=== PATIENT | male | born 1955 | race Caucasian/White ===

== ENCOUNTER 2016-08-11 15:55 | Emergency (ER) | payer SELFPAY ==
[~2016-08-11] VITALS: Ht 177.8 cm; Wt 68.0 kg
[~2016-08-11 15:55] MED LIST: AMLO10TA4 PO; ASPI325T4 PO; ATOR20TA9 PO; CLON0.1T12 PO; DOXY100T PO; FAMO20TA37 PO; FAMO20TA7 PO; Folic Acid PO; LORA-446 PO; MULT1TAB60 PO; ONDA4TAB10 PO; PRED20TA PO; THIA100T6 PO
[2016-08-11] MEDS ORDERED: THIAMINE 100MG TABLET ONE (16:28)
[2016-08-11] MEDS ORDERED: THIAMINE 100MG TABLET PO ONE (16:30)
[2016-08-11] MEDS ORDERED: PLEASE ENTER WEIGHT MC SCH (16:30)
[2016-08-11 19:21] VITALS: BP 121/75
== END 2016-08-11 19:47 | disposition home or self-care (01) ==
LOC: ED 17:25
DX: F10.120 Alcohol abuse with intoxication, uncomplicated (principal); F17.210 Nicotine dependence, cigarettes, uncomplicated; J44.9 Chronic obstructive pulmonary disease, unspecified; I10 Essential (primary) hypertension; I25.10 Atherosclerotic heart disease of native coronary artery without angina pectoris; I25.2 Old myocardial infarction
CPT/HCPCS: 99283

== ENCOUNTER 2016-08-12 07:50 | Emergency (ER) | payer SELFPAY ==
[~2016-08-12] VITALS: Ht 172.7 cm; Wt 62.0 kg
[2016-08-12 13:02] VITALS: BP 117/68
== END 2016-08-12 13:04 | disposition home or self-care (01) ==
LOC: ED 08:31
DX: F10.229 Alcohol dependence with intoxication, unspecified (principal)
CPT/HCPCS: 99283

== ENCOUNTER 2016-08-25 23:01 | Emergency (ER) | payer SELFPAY ==
[~2016-08-25] VITALS: Ht 172.7 cm; Wt 64.0 kg
[2016-08-26 05:30] VITALS: BP 118/71
== END 2016-08-26 06:02 | disposition left against medical advice (07) ==
LOC: ED 23:59
DX: F10.220 Alcohol dependence with intoxication, uncomplicated (principal); I10 Essential (primary) hypertension; J44.9 Chronic obstructive pulmonary disease, unspecified; I25.10 Atherosclerotic heart disease of native coronary artery without angina pectoris
CPT/HCPCS: 99283

== ENCOUNTER 2016-09-19 13:16 | Emergency (ER) | payer MEDICAID ==
[~2016-09-19] VITALS: Ht 177.8 cm; Wt 70.0 kg
[2016-09-19 14:07] LABS: DAU SCREEN DISCLAIMER
[2016-09-19 14:08] LABS: ASPARTATE AMINO TRANSFERASE 20 U/L (15-37); BLOOD UREA NITROGEN 11 mg/dL (7-18)
[2016-09-19 14:12] LABS: ACETAMINOPHEN < 2 mcg/mL (10-30)
[2016-09-19 16:01] VITALS: BP 129/77
== END 2016-09-19 17:54 | disposition left against medical advice (07) ==
LOC: ED 15:46
DX: F10.221 Alcohol dependence with intoxication delirium (principal); I25.10 Atherosclerotic heart disease of native coronary artery without angina pectoris; I10 Essential (primary) hypertension; I25.2 Old myocardial infarction; J44.9 Chronic obstructive pulmonary disease, unspecified
CPT/HCPCS: 36415; 70450; 71010; 80053; 80307; 80329; 81001; 85025; 93005; 99285; G0480

== ENCOUNTER 2016-09-21 13:43 | Inpatient (IN) | payer MEDICAID ==
[~2016-09-21] VITALS: Ht 172.7 cm; Wt 60.2 kg
[2016-09-21 14:57] LABS: ASPARTATE AMINO TRANSFERASE 30 U/L (15-37); BLOOD UREA NITROGEN 27 mg/dL (7-18)
[2016-09-21] MEDS ORDERED: SODIUM CHLORIDE FLUSH 10ML SYR IVF ONE (15:30)
[2016-09-21] MEDS ORDERED: SODIUM CHLORIDE 0.9% 1,000ML IVBOLUS ONE (15:30)
[2016-09-21] MEDS ORDERED: MAGNESIUM SULFATE 1 GM, THIAMINE 100 MG, FOLIC ACID 1 MG, MVI ADULT 10 ML in SODIUM CHL... IV ONE (17:00)
[2016-09-21] MEDS ORDERED: ALUMINUM/MAG/SIMETHICONE 30 ML UDC PO PRN (18:00)
[2016-09-21] MEDS ORDERED: DIPHENHYDRAMINE 50 MG CAPSULE PO PRN (18:00)
[2016-09-21] MEDS ORDERED: ACETAMINOPHEN 325 MG TABLET PO PRN (18:00)
[2016-09-21] MEDS ORDERED: LORazepam 1MG TABLET PO PRN ×3 (18:00)
[2016-09-21] MEDS ORDERED: DOCUSATE 100 MG CAPSULE PO PRN (18:00)
[2016-09-21] MEDS ORDERED: BISACODYL 10 MG SUPP PR PRN (18:00)
[2016-09-21] MEDS ORDERED: ONDANSETRON 2MG/ML, 2ML IV PRN (18:00)
[2016-09-21 18:10] VITALS: BP 123/63
[2016-09-21] MEDS ORDERED: LORazepam 1MG TABLET ONE (18:42)
[2016-09-21] MEDS: LORazepam 0.5MG TABLET PO PRN (18:46)
[2016-09-21 19:11] LABS: IS PT STATUS REG ER OR PRE ER? NO
[2016-09-21 19:33] VITALS: BP 129/69
[2016-09-21 20:00] VITALS: BP 123/63
[2016-09-21] MEDS: BACLOFEN 10 MG TABLET PO SCH (20:21)
[2016-09-21] MEDS: ENOXAPARIN 40 MG/0.4 ML SQ SCH (20:21)
[2016-09-22 02:02] VITALS: BP 125/67
[2016-09-22] MEDS: LORazepam 1MG TABLET PO PRN (02:07)
[2016-09-22] MEDS: SODIUM CHLORIDE 0.9% 1,000 ML IV SCH ×2 (04:00→12:11)
[2016-09-22] MEDS: BACLOFEN 10 MG TABLET PO SCH ×2 (08:09→20:18)
[2016-09-22] MEDS: MULTIVITAMINS/MINERALS TABLET PO SCH (08:09)
[2016-09-22] MEDS: LORazepam 0.5MG TABLET PO PRN ×2 (08:09→17:29)
[2016-09-22] MEDS: NICOTINE 14MG/24 HR PATCH.TD24 TD SCH (08:10)
[2016-09-22 09:45] VITALS: BP 147/78
[2016-09-22 13:51] VITALS: BP 154/77
[2016-09-22] MEDS: POTASSIUM CHLORIDE 10 MEQ, MVI ADULT 10 ML, FOLIC ACID 1 MG, MAGNESIUM SULFATE 1 GM in ... IV SCH (17:29)
[2016-09-22 18:44] VITALS: BP 179/87
[2016-09-22] MEDS ORDERED: SODIUM CHLORIDE 0.9% 1,000 ML IV SCH (19:00)
[2016-09-22] MEDS: ENOXAPARIN 40 MG/0.4 ML SQ SCH (20:18)
[2016-09-23 01:27] VITALS: BP 159/84
[2016-09-23 05:35] LABS: BLOOD UREA NITROGEN 7 mg/dL (7-18)
[2016-09-23 07:54] VITALS: BP 152/82
[2016-09-23] MEDS ORDERED: POTASSIUM CHLORIDE 20 MEQ TAB.ER.PRT PO ONE (08:30)
[2016-09-23] MEDS ORDERED: SODIUM PHOSPHATE 15 MMOL in SODIUM CHLORIDE 0.9% 500 ML IV ONE (10:00)
[2016-09-23] MEDS: MULTIVITAMINS/MINERALS TABLET PO SCH (10:23)
[2016-09-23] MEDS: LORazepam 0.5MG TABLET PO PRN ×2 (10:23→12:29)
[2016-09-23] MEDS: TAMSULOSIN 0.4 MG CAP.ER.24H PO SCH (10:23)
[2016-09-23] MEDS: BACLOFEN 10 MG TABLET PO SCH ×2 (10:23→20:34)
[2016-09-23] MEDS: NICOTINE 14MG/24 HR PATCH.TD24 TD SCH (10:24)
[2016-09-23 13:22] VITALS: BP 142/74
[2016-09-23] MEDS: LORazepam 1MG TABLET PO PRN (18:06)
[2016-09-23] MEDS: POTASSIUM CHLORIDE 10 MEQ, MVI ADULT 10 ML, FOLIC ACID 1 MG, MAGNESIUM SULFATE 1 GM in ... IV SCH (18:06)
[2016-09-23] MEDS ORDERED: POTASSIUM CHLORIDE 10 MEQ in SODIUM CHLORIDE 0.9% 1,000 ML IV SCH (19:00)
[2016-09-23] MEDS: ENOXAPARIN 40 MG/0.4 ML SQ SCH (20:34)
[2016-09-23 20:42] VITALS: BP 136/91
[2016-09-24 02:00] VITALS: BP 147/100
[2016-09-24] MEDS: POTASSIUM CHLORIDE 10 MEQ in SODIUM CHLORIDE 0.9% 1,000 ML IV SCH ×2 (02:05→17:57)
[2016-09-24 05:43] LABS: BLOOD UREA NITROGEN 4 mg/dL (7-18)
[2016-09-24 06:50] VITALS: BP 153/95
[2016-09-24] MEDS: TAMSULOSIN 0.4 MG CAP.ER.24H PO SCH (09:47)
[2016-09-24] MEDS: MULTIVITAMINS/MINERALS TABLET PO SCH (09:47)
[2016-09-24] MEDS: BACLOFEN 10 MG TABLET PO SCH ×2 (09:47→20:19)
[2016-09-24] MEDS: NICOTINE 14MG/24 HR PATCH.TD24 TD SCH (09:47)
[2016-09-24] MEDS: LORazepam 0.5MG TABLET PO PRN ×2 (09:50→20:19)
[2016-09-24] MEDS: NEUTRA PHOS K 250 MG TABLET PO SCH ×2 (09:50→20:19)
[2016-09-24 13:25] VITALS: BP 136/89
[2016-09-24] MEDS: POTASSIUM CHLORIDE 10 MEQ, MVI ADULT 10 ML, FOLIC ACID 1 MG, MAGNESIUM SULFATE 1 GM in ... IV SCH (17:57)
[2016-09-24 19:23] VITALS: BP 144/83
[2016-09-24] MEDS: ENOXAPARIN 40 MG/0.4 ML SQ SCH (20:19)
[2016-09-25 02:00] VITALS: BP 149/98
[2016-09-25] MEDS: POTASSIUM CHLORIDE 10 MEQ in SODIUM CHLORIDE 0.9% 1,000 ML IV SCH (03:15)
[2016-09-25 08:04] VITALS: BP 148/92
[2016-09-25] MEDS: LORazepam 0.5MG TABLET PO PRN ×2 (08:18→13:17)
[2016-09-25] MEDS: NEUTRA PHOS K 250 MG TABLET PO SCH ×2 (08:18→20:52)
[2016-09-25] MEDS: TAMSULOSIN 0.4 MG CAP.ER.24H PO SCH (08:18)
[2016-09-25] MEDS: MULTIVITAMINS/MINERALS TABLET PO SCH (08:18)
[2016-09-25] MEDS: BACLOFEN 10 MG TABLET PO SCH ×2 (08:18→20:52)
[2016-09-25] MEDS: NICOTINE 14MG/24 HR PATCH.TD24 TD SCH (08:19)
[2016-09-25] MEDS ORDERED: LORazepam 1MG TABLET PO PRN (08:30)
[2016-09-25] MEDS: CHLORDIAZEPOXIDE 5 MG CAPSULE PO SCH (10:46)
[2016-09-25 14:09] VITALS: BP 127/87
[2016-09-25] MEDS: POTASSIUM CHLORIDE 10 MEQ, MVI ADULT 10 ML, FOLIC ACID 1 MG, MAGNESIUM SULFATE 1 GM in ... IV SCH (17:32)
[2016-09-25 19:22] VITALS: BP 124/78
[2016-09-25] MEDS: ENOXAPARIN 40 MG/0.4 ML SQ SCH (20:52)
[2016-09-26 01:13] VITALS: BP 138/90
[2016-09-26] MEDS: POTASSIUM CHLORIDE 10 MEQ in SODIUM CHLORIDE 0.9% 1,000 ML IV SCH ×2 (02:21→16:51)
[2016-09-26 06:35] VITALS: BP 126/79
[2016-09-26] MEDS: NICOTINE 14MG/24 HR PATCH.TD24 TD SCH (09:02)
[2016-09-26] MEDS: BACLOFEN 10 MG TABLET PO SCH ×2 (09:02→20:31)
[2016-09-26] MEDS: MULTIVITAMINS/MINERALS TABLET PO SCH (09:02)
[2016-09-26] MEDS: NEUTRA PHOS K 250 MG TABLET PO SCH ×2 (09:02→20:31)
[2016-09-26] MEDS: CHLORDIAZEPOXIDE 5 MG CAPSULE PO SCH ×2 (09:02→20:31)
[2016-09-26] MEDS: TAMSULOSIN 0.4 MG CAP.ER.24H PO SCH (09:02)
[2016-09-26 13:01] VITALS: BP 145/87
[2016-09-26 18:12] LABS: IS PT STATUS REG ER OR PRE ER? NO
[2016-09-26 18:35] VITALS: BP 159/84
[2016-09-26] MEDS: ENOXAPARIN 40 MG/0.4 ML SQ SCH (20:31)
[2016-09-26 23:26] LABS: IS PT STATUS REG ER OR PRE ER? NO
[2016-09-27] MEDS: POTASSIUM CHLORIDE 10 MEQ in SODIUM CHLORIDE 0.9% 1,000 ML IV SCH (05:28)
[2016-09-27 05:33] VITALS: BP 137/94
[2016-09-27 07:40] VITALS: BP 134/86
[2016-09-27] MEDS: BACLOFEN 10 MG TABLET PO SCH (08:16)
[2016-09-27] MEDS: MULTIVITAMINS/MINERALS TABLET PO SCH (08:16)
[2016-09-27] MEDS: TAMSULOSIN 0.4 MG CAP.ER.24H PO SCH (08:16)
[2016-09-27] MEDS: NICOTINE 14MG/24 HR PATCH.TD24 TD SCH (08:16)
[2016-09-27] MEDS: NEUTRA PHOS K 250 MG TABLET PO SCH (08:20)
[2016-09-27] MEDS: CHLORDIAZEPOXIDE 5 MG CAPSULE PO SCH (08:20)
[2016-09-27] MEDS ORDERED: TAMS-11 PO (08:31)
[2016-09-27] MEDS ORDERED: CHLO5CAP2 PO (08:31)
[2016-09-27] MEDS ORDERED: PRED5TAB PO (08:31)
== END 2016-09-27 12:55 | disposition home or self-care (01) | DRG 896 ==
LOC: ED 14:37 → EDIP 17:07 → 4WST 17:59 → DCLOUNGE 09-27 12:31
PROVIDERS: ADMIT Family Medicine; ATTEND Family Medicine
PROC: 0T9B70Z Drainage of Bladder with Drainage Device, Via Natural or Artificial Opening (ICD-10-PCS; principal; 2016-09-22)
DX: F10.129 Alcohol abuse with intoxication, unspecified (principal); G92 Toxic encephalopathy; J96.02 Acute respiratory failure with hypercapnia; N17.0 Acute kidney failure with tubular necrosis; D72.829 Elevated white blood cell count, unspecified; E86.0 Dehydration; J44.9 Chronic obstructive pulmonary disease, unspecified; I10 Essential (primary) hypertension; I25.10 Atherosclerotic heart disease of native coronary artery without angina pectoris; N40.1 Benign prostatic hyperplasia with lower urinary tract symptoms; R33.8 Other retention of urine; E87.6 Hypokalemia; E83.39 Other disorders of phosphorus metabolism; F17.210 Nicotine dependence, cigarettes, uncomplicated; M10.9 Gout, unspecified; Z82.49 Family history of ischemic heart disease and other diseases of the circulatory system; F43.9 Reaction to severe stress, unspecified; Y90.8 Blood alcohol level of 240 mg/100 ml or more; I25.2 Old myocardial infarction; R73.9 Hyperglycemia, unspecified; Z71.6 Tobacco abuse counseling
CPT/HCPCS: 36415; 70450; 71010; 72125; 80048; 80053; 80061; 80307; 81001; 82962; 83036; 83735; 84100; 84484; 85025; 85379; 93005; 96360; J1650; J3411; J3475; J3480; J7042; J7030; J7040; J7512

== ENCOUNTER 2016-10-14 19:50 | Emergency (ER) | payer MEDICAID ==
[~2016-10-14] VITALS: Ht 172.7 cm; Wt 70.0 kg
[~2016-10-14 19:50] MED LIST changes: +CHLO5CAP2 PO; +PRED5TAB PO; +TAMS-11 PO
[2016-10-15 01:58] VITALS: BP 113/73
== END 2016-10-15 02:16 | disposition home or self-care (01) ==
LOC: ED 20:45
DX: S06.310A Contusion and laceration of right cerebrum without loss of consciousness, initial encounter (principal); F10.129 Alcohol abuse with intoxication, unspecified; I10 Essential (primary) hypertension; J44.9 Chronic obstructive pulmonary disease, unspecified; I25.2 Old myocardial infarction; I25.10 Atherosclerotic heart disease of native coronary artery without angina pectoris; W01.0XXA Fall on same level from slipping, tripping and stumbling without subsequent striking against object, initial encounter; Y93.89 Activity, other specified; Y92.89 Other specified places as the place of occurrence of the external cause; Y99.8 Other external cause status
CPT/HCPCS: 70450; 72020; 72050

== ENCOUNTER 2016-11-27 14:37 | Emergency (ER) | payer MEDICAID ==
[~2016-11-27] VITALS: Ht 172.7 cm; Wt 70.0 kg
[2016-11-27] MEDS ORDERED: SULFAMETH./TRIMETHOPRIM DS 800MG/160MG TABLET PO ONE (15:30)
[2016-11-27] MEDS ORDERED: SULFAMETH./TRIMETHOPRIM DS 800MG/160MG TABLET ONE (15:58)
[2016-11-27 16:19] VITALS: BP 130/77
== END 2016-11-27 17:16 | disposition home or self-care (01) ==
LOC: ED 16:26
DX: L03.113 Cellulitis of right upper limb (principal); F10.229 Alcohol dependence with intoxication, unspecified; F17.200 Nicotine dependence, unspecified, uncomplicated; I10 Essential (primary) hypertension; I25.10 Atherosclerotic heart disease of native coronary artery without angina pectoris; J44.9 Chronic obstructive pulmonary disease, unspecified
CPT/HCPCS: 99283

== ENCOUNTER 2020-11-23 04:29 | Emergency (ER) | payer MEDICAID ==
[~2020-11-23] VITALS: Ht 167.6 cm; Wt 55.0 kg
[~2020-11-23 04:29] MED LIST changes: +ASPI325T17 PO; -ASPI325T4 PO; +ATOR20TA37 PO; -ATOR20TA9 PO; +MULT-449 PO; -MULT1TAB60 PO; -THIA100T6 PO; +THIA100T67 PO
--- NOTE | 2020-11-23 04:40 | NUR ---
Patient BIB after roomates couldn't take care of him anymore after continous falls. Patient states he drank over a pint of Vodka today. Patient has no complaints at this time and states "I know who called for me to come in here but now that I am here, can I just stay." Patient had scattered bruising/ abrasions throughout body. Call vora in reach. bed in low position. awaiting ERP.
--- NOTE | 2020-11-23 05:51 | NUR ---
Patient provided with pudding at this time.
--- NOTE | 2020-11-23 06:30 | NUR ---
Patient given discharge instructions and they have confirmed that they understand the instructions. Patient ambulatory with steady gait. NAD, all questions answered appropriately, denies additional needs at this time. No personal belongings left in room after discharge.
[2020-11-23 06:31] VITALS: BP 103/62
== END 2020-11-23 06:32 | disposition home or self-care (01) ==
LOC: ED 06:00
DX: F10.120 Alcohol abuse with intoxication, uncomplicated (principal); I10 Essential (primary) hypertension; Y90.0 Blood alcohol level of less than 20 mg/100 ml
CPT/HCPCS: 99283